=== PATIENT | male | born 2000 | race Caucasian/White ===

== ENCOUNTER 2021-04-06 20:40 | Emergency (ER) | payer OTHER ==
[~2021-04-06] VITALS: Ht 172.7 cm; Wt 68.4 kg
[2021-04-06 20:45] VITALS: BP 143/82
--- NOTE | 2021-04-06 21:12 | ED EENT ---
History of Present Illness General Chief Complaint: General Problems/Pain Stated Complaint: NAUSEA/VOMITING Source: patient, family (mother) Exam Limitations: no limitations History of Present Illness Date Seen by Provider: Apr 06, 2021 Time Seen by Provider: 21:00 Initial Comments 20-year-old male presents with his mother with complaint of sore throat and sinus drainage for the past 1 week intermittently. Was seen in the emergency room in [place] 2 days ago and had IV fluids, negative rapid strep, p.o. steroids and was sent home. Yesterday he was seen in urgent care and given steroids again and sent home. Mother states that he is "only able to swallow 1 teaspoon of fluid at the time, but then he spits up 4 teaspoons of mucus" thereafter. States she is gave him NyQuil x1 but it belle his throat, she has given him Benadryl but it did not help. Denies abdominal pain, fever chills or sinus pressure. Asked if he was taking Zyrtec and the mother said "no", then retracted and said that "he takes it every day", but it doesn't work. Allergies and Home Medications Allergies Coded Allergies: nut - unspecified (Verified Allergy, Severe, 04/06/21) Home Medications Cetirizine HCl 10 Mg Tablet, 10 MG PO DAILY Prescribed by: MAIRA LUNDBERG on 04/06/212116 Ibuprofen 800 Mg Tablet, 800 MG PO Q8H PRN for PAIN Prescribed by: MAIRA MACKSTBIENVENIDO on 04/06/212116 Promethazine HCl 25 Mg Tablet, 25 MG PO Q6H PRN for NAUSEA/VOMITING Prescribed by: MAIRA LUNDBERG on 04/06/212116 Patient Home Medication List Home Medication List Reviewed: Yes Review of Systems Review of Systems Constitutional: No chills, No dizziness, No fever; malaise; No weakness Eyes: No Symptoms Reported Ears: No Symptoms Reported Nose: denies clots; congestion; denies epistaxis, denies bloody discharge; clear discharge; denies purulent discharge, denies serosanguinous discharge Mouth: denies pain, denies swelling, denies serosanguinous discharge Throat: see HPI, pain, swelling; denies hoarse, denies aphonia, denies muffled; painful swallowing Respiratory: cough; No short of breath, No wheezing Cardiovascular: No chest pain, No edema Gastrointestinal: No abdominal pain; loss of appetite; No nausea, No vomiting Past [id number] Hx Past Med/Social Hx: Reviewed Nursing Past Med/Soc Hx Physical Exam Vital Signs Vital Signs - First Documented 04/06/21 20:45 Temp 37.0 Pulse 98 Resp 20 B/P (MAP) 143/82 (102) Pulse Ox 96 O2 Delivery Room Air Height, Weight, BMI Height: '" Weight: lbs. oz. kg; BMI Method: General Appearance: WD/WN, no apparent distress Ears: bilateral ear auricle normal, bilateral ear canal normal, bilateral ear TM normal Nose: normal inspection; No active bleeding, No discharge, No sinus tenderness Mouth/Throat: No excessive drooling, No mandibular swelling, No maxillary swelling, No pharynx swelling, No pharynx tenderness, No tongue swollen, No tonsillar exudate; tonsillar swelling; No trismus, No uvula swelling, No voice changes; other (pharyngeal erythema without exudate or abscess formation. moderate PND) Neck: non-tender, supple Cardiovascular: regular rate, rhythm, no edema, no JVD Respiratory: chest non-tender, lungs clear, normal breath sounds, no respiratory distress, no accessory muscle use Gastrointestinal: non tender, soft Neurologic/Psychiatric: alert, normal mood/affect, oriented x 3 Skin: normal color, warm/dry Progress/Results/Core Measures Results/Orders Lab Results Laboratory Tests Test 04/06/21 21:12 Range/Units Group A Streptococcus Screen NEGATIVE NEGATIVE My Orders Orders - MAIRA LUNDBERG DO Ed Iv/Invasive Line Start (04/06/21 21:05) Rapid Strep A Screen (04/06/21 21:05) Ns Iv 1000 Ml (Sodium Chloride 0.9%) (04/06/21 21:15) Ondansetron Injection (Zofran Injectio (04/06/21 21:15) Covid-19 External Lab Results (04/06/21 21:09) Vital Signs/I&O 04/06/21 20:45 Temp 37.0 Pulse 98 Resp 20 B/P (MAP) 143/82 (102) Pulse Ox 96 O2 Delivery Room Air Progress Progress Note : Progress Note Mother does most of the talking even though patient is totally coherent, awake, alert, polite and able to speak for himself. Attempted to focus on the patient for his history of present illness without the mother's constant interruptions, but with no success as she continued to speak for him. Mother initially seems frustrated that he was still sick and this was the third day in a row that they have been seen by a Dr., I asked "what is that you want today?" She stated, I think he needs labs, IV fluids and IV steroids. I expla ined this was not indicated for what appears to be a viral upper respiratory infection with pharyngitis. I agreed to give IV fluids, explained that continued steroids with a viral infection would inhibit his immune systems ability to get over the virus and it would be better to give him vitamin C, D and zinc. Mother states he cannot take those because it would upset his stomach. Also explained labs were not indicated as vital signs were normal, but I agreed to do another rapid strep screen for a third day straight. Nursing started IVF and was going to give the Zorfan IV (but mother refused it because she said he had zofran at home). Wanted son to have water to drink (even though she said he couldn't drink....the reason she wanted IVF). Very belligerent mother. Everything offered to her she said she already has it at home (Zofran, phenergan, any antihistamine mentioned and steroids). Asked her what she wanted if everything I am offering she is refusing. She replied, I thought you would have something different to treat him with or that you would check his eosinophils or something. Then proceeded to deride my medical credibility and knowledge and state that she had never been treated this way and that I was not listening to her. I explained that I was going out of my way to make her happy to give her son the IVF and zofran for a condition that ordinarily I would not give this tx. Only to have her refuse treatment and become belligerent and insulting my credibility. I told her she was entitled to seek care with another clinic, ER of her choice. Departure Impression Primary Impression: Viral pharyngitis Additional Impression: URI, acute Disposition: 01 HOME, SELF-CARE Condition: Stable Departure-Patient Inst. Decision time for Depature: 21:17 Referrals: NO,LOCAL PHYSICIAN (PCP/Family) Primary Care Physician Patient Instructions: Viral Pharyngitis (DC), Viral Upper Respiratory Infection, Adult (DC) Add. Discharge Instructions: Follow up with your primary care physician next week if not improving, sooner if worse. All discharge instructions reviewed with patient and/or family. Voiced understanding. Scripts Ibuprofen (Ibuprofen) 800 Mg Tablet 800 MG PO Q8H PRN for PAIN, #30 TAB 0 Refills Prov: MAIRA LUNDBERG DO 04/06/21 Cetirizine HCl (Zyrtec) 10 Mg Tablet 10 MG PO DAILY, #20 TAB Prov: MAIRA LUNDBERG DO 04/06/21 Promethazine HCl (Promethazine Tablet) 25 Mg Tablet 25 MG PO Q6H PRN for NAUSEA/VOMITING, #10 TAB Prov: MAIRA LUNDBERG DO 04/06/21 MAIRA LUNDBERG DO Apr 06, 2021 21:12
[2021-04-06] MEDS ORDERED: ONDANSETRON 4 MG/2 ML (SDV) Z0FRAN IVP ONE (21:15)
[2021-04-06] MEDS ORDERED: NS IV 1000 ML 1,000 ML IV SCH (21:15)
[2021-04-06] MEDS ORDERED: NS IV 1000 ML 1,000 ML ONE (21:16)
[2021-04-06] MEDS ORDERED: ONDANSETRON 4 MG/2 ML (SDV) Z0FRAN ONE (21:16)
[2021-04-06] MEDS ORDERED: PROM25TA14 PO (21:17)
[2021-04-06] MEDS ORDERED: IBUP-1780 PO (21:17)
[2021-04-06] MEDS ORDERED: CETI10TA49 PO (21:17)
== END 2021-04-06 21:40 | disposition home or self-care (01) ==
LOC: ER FS 20:47
DX: J02.8 Acute pharyngitis due to other specified organisms (principal); J06.9 Acute upper respiratory infection, unspecified
CPT/HCPCS: 87430